=== PATIENT | male | born 1965 | race African-American/Black ===

== ENCOUNTER 2018-09-23 12:55 | Emergency (ER) | payer MEDICAID ==
[~2018-09-23] VITALS: Ht 167.6 cm; Wt 71.0 kg
[2018-09-23] MEDS ORDERED: HYDROCODONE/ACETAMINOPHEN 5/325MG TABLET PO ONE (16:30)
[2018-09-23] MEDS ORDERED: LIDOCAINE HCL 1% 20ML VIAL (Pyxis) INJ INFIL ONE (16:30)
[2018-09-23 16:55] VITALS: BP 113/65
[2018-09-23] MEDS ORDERED: BACITRACIN ZINC OINT UDPKT TOP ONE (17:15)
== END 2018-09-23 17:46 | disposition home or self-care (01) ==
LOC: ER 12:55
DX: L03.011 Cellulitis of right finger (principal); E78.00 Pure hypercholesterolemia, unspecified; N40.0 Benign prostatic hyperplasia without lower urinary tract symptoms; F17.200 Nicotine dependence, unspecified, uncomplicated; Z89.021 Acquired absence of right finger(s)
CPT/HCPCS: 10060; 73140; 99283; J3490; Z7610